=== PATIENT | male | born 1990 | race American Indian/Alaskan Native ===

== ENCOUNTER 2018-02-14 05:28 | Emergency (ER) | payer SELFPAY ==
[2018-02-14 05:40] VITALS: BP 124/80
--- NOTE | 2018-02-14 06:48 | XRay Report ---
FINAL REPORT PROCEDURE: XR TOE(S) 2+V RT TECHNIQUE: RIGHT foot radiographs, AP, lateral, and oblique views. CPT 78893 HISTORY: trauma great toe COMPARISON: No prior studies are available for comparison. FINDINGS: Fracture (s) and/or Dislocation(s): There is a nondisplaced hairline fracture of the distal portion of the 1st distal phalanx. There is a questionable cortical fracture of the distal 2nd phalanx.. Alignment: Normal . Joint space(s): There is no joint dislocation.. Soft tissues: There is soft tissue swelling of the 1st and 2nd digits. Bone mineralization: Normal . Foreign bodies: None . Calcaneal spurring: None . IMPRESSION: There is a nondisplaced hairline fracture of the distal portion of the 1st distal phalanx. There is a questionable cortical fracture of the distal 2nd phalanx.. There is no joint dislocation.. There is soft tissue swelling of the 1st and 2nd digits. .
--- NOTE | 2018-02-14 07:03 | Emergency Department Report ---
ED Lower Extremity HPI - General Chief Complaint: Extremity Injury, Lower Stated Complaint: RT FOOT INJURY Time Seen by Provider: 02/14/18 07:01 Source: patient, family Mode of arrival: Ambulatory Limitations: No Limitations - History of Present Illness Initial Comments: This is a 27-year-old male patient here reports that he has right toe pain that is 10 out of 10 status post drop and 25 pound dumbbell on to at 4 AM this morning. Pain is achy and throbbing. He said he is also having bleeding from right great toenail. Pain is worse with movement and touch resting. Pain is constant. Denies any numbness or tingling. Denies any radiation of pain to his right foot. No medication taken prior to coming to the emergency room. MD Complaint: foot injury (right great toe injury with pain) -: This morning Injury: Toes: Right (pain and swelling to right great toe) Type of Injury: blunt Severity: severe Severity scale (0 -10): 10 Improves With: rest Worsens With: weight bearing, movement, palpation Context: direct blow Associated Symptoms: swelling, able to partially bear weight. denies: numbness , tingling, unable to bear weight Treatments Prior to Arrival: other (none) - Related Data Previous Rx's Medication Instructions Recorded Last Taken Type Acetaminophen/Codeine [Tylenol 1 tab PO Q6H PRN #12 tab 02/14/18 Unknown Rx /Codeine # 3 tab] Ibuprofen [Motrin] 600 mg PO Q8H PRN #15 tablet 02/14/18 Unknown Rx Allergies Allergy/AdvReac Type Severity Reaction Status Date / Time No Known Allergies Allergy Verified 02/14/18 05:36 ED Review of Systems ROS: Stated complaint: RT FOOT INJURY Other details as noted in HPI Constitutional: denies: chills, fever ENT: as per HPI Respiratory: denies: cough, shortness of breath, SOB with exertion, SOB at rest , stridor, wheezing Cardiovascular: denies: chest pain, palpitations, edema, syncope Gastrointestinal: denies: abdominal pain, nausea, vomiting Musculoskeletal: joint swelling, arthralgia. denies: back pain, myalgia Skin: change in hair/nails (some bleeding noted from right great toe and nail bed). denies: rash, lesions Neurological: denies: headache, weakness, numbness, paresthesias ED Past Medical Hx - Past Medical History Previous Medical History?: No - Surgical History Past Surgical History?: No - Family History Family history: no significant - Social History Smoking Status: Never Smoker Substance Use Type: None - Medications Home Medications: Home Medications Medication Instructions Recorded Confirmed Last Taken Type Acetaminophen/Codeine [Tylenol 1 tab PO Q6H PRN #12 tab 02/14/18 Unknown Rx /Codeine # 3 tab] Ibuprofen [Motrin] 600 mg PO Q8H PRN #15 tablet 02/14/18 Unknown Rx ED Physical Exam - General Limitations: No Limitations General appearance: alert, in no apparent distress - Head Head exam: Present: atraumatic, normocephalic, normal inspection - Eye Eye exam: Present: normal appearance, PERRL, EOMI Pupils: Present: normal accommodation - ENT ENT exam: Present: normal exam, normal orophraynx, mucous membranes moist - Neck Neck exam: Present: normal inspection, full ROM, other (no C-spine tenderness). Absent: tenderness, lymphadenopathy - Respiratory Respiratory exam: Present: normal lung sounds bilaterally. Absent: respiratory distress, chest wall tenderness - Cardiovascular Cardiovascular Exam: Present: regular rate, normal rhythm, normal heart sounds. Absent: systolic murmur, diastolic murmur - GI/Abdominal GI/Abdominal exam: Present: soft, normal bowel sounds. Absent: distended, tenderness, organomegaly, mass, bruit, pulsatile mass - Rectal Rectal exam: Present: deferred - Extremities Exam Extremities exam: Present: normal inspection, full ROM (Limited range of motion to right great toe), tenderness (tender to palpate the right great toe), normal capillary refill, joint swelling (right great toe distally), other (no clubbing , cyanosis or edema. +2 pulses to all extremities and no neurovascular compromise). Absent: pedal edema, calf tenderness - Expanded Lower Extremity Exam Right Hip exam: Present: normal inspection, full ROM, pelvic stability. Absent: tenderness, swelling, abrasion, laceration, ecchymosis, deformity, crepidus, dislocation, erythema, external rotation, internal rotation, shortening Upper Leg exam: Present: normal inspection, full ROM. Absent: tenderness, swelling, abrasion, laceration, ecchymosis, deformity, crepidus, dislocation, erythema Knee exam: Present: normal inspection, full ROM, full knee extension. Absent: tenderness, swelling, abrasion, laceration, ecchymosis, deformity, crepidus, dislocation, erythema, effusion, pain w/ pronation/supination, posterior draw sign, pain/laxity with valgus, pain/laxity with varus Lower Leg exam: Present: normal inspection, full ROM. Absent: tenderness, swelling, abrasion, laceration, ecchymosis, deformity, crepidus, dislocation, erythema, palpable cord, Robbin's sign Ankle exam: Present: normal inspection, full ROM. Absent: tenderness, swelling , abrasion, laceration, ecchymosis, deformity, crepidus, dislocation, erythema Foot/Toe exam: Present: tenderness (tenderness to palpate the right great toe. Right second toe nontender to palpate without swelling. Full range of motion), swelling (right great toe). Absent: full ROM (amended range of motion to right great toe), abrasion, laceration, ecchymosis, deformity, crepidus, dislocation, erythema, amputation, puncture wound, foreign body, calcaneal tenderness, tenderness at base of 5th metatarsal, nail avulsion (toenail to right great toe is intact but patient with scant amount of blood from nail bed.), subungual hematoma Neuro vascular tendon exam: Present: no vascular compromise, significant pain with passive ROM of distal joint. Absent: pulse deficit, abnormal cap refill, motor deficit, tendon deficit, extremity cold to touch, pallor, abnormal 2- point discrimination, decreased fine/light touch, foot drop, peroneal nerve deficit Gait: Positive: antalgic - Back Exam Back exam: Present: normal inspection, full ROM. Absent: tenderness, paraspinal tenderness, vertebral tenderness - Neurological Exam Neurological exam: Present: alert, oriented X3, normal gait - Psychiatric Psychiatric exam: Present: normal affect, normal mood - Skin Skin exam: Present: warm, dry, intact, normal color, other (scant bleeding from right great toenail bed with intact toenail.). Absent: rash ED Course Vital Signs 02/14/18 02/14/18 02/14/18 05:36 06:13 07:13 Temperature 98.8 F Pulse Rate 117 H 74 Respiratory 16 18 18 Rate Blood Pressure 124/80 O2 Sat by Pulse 95 97 Oximetry 02/14/18 07:40 Temperature Pulse Rate Respiratory 18 Rate Blood Pressure O2 Sat by Pulse Oximetry - Reevaluation(s) Reevaluation #1: 02/14/18 08:11 Patient received oxycodone 5/325 mg 2 tablets by mouth and Motrin 800 mg by mouth for right great toe pain without relief. Prior to splinted in right foot soaked in iodine, irrigated with normal saline and simple dressing in place to site. Tetanus vaccine is up-to-date. See procedure note for detail on. There was questionable fracture of the distal second right toe but physical exam without any tenderness or swelling. 02/14/18 08:18 - Orthopedic Splinting/Casting Injury #1 Side: right Lower Extremity Injury Location: toe Lower Extremity Immobilizer: post-op shoe, jessica tape Other Orthopedic Equipment: crutches Additional Comments: Patient with 2+ and bounding pulse status post jessica tape to right great toe and second toe and postop shoe. He has good color, sensation temperature and movement to right foot and toes. ED Lower Extremity MDM - Radiology Data Radiology results: report reviewed X-ray of right toes dictated by radiologist and report reviewed by myself. Please see below for details Patient: HERNANDEZ ZUNIGA JR MR#: [id number] : 1990 Acct:[id number] Age/Sex: 27 / M ADM Date: 02/14/18 Loc: ED Attending Dr: Ordering Physician: ANGELO EDMOND MD Date of Service: 02/14/18 Procedure(s): XR toe(s) 2+V RT Accession Number(s): [id number] cc: ANGELO EDMOND MD Fluoro Time In Minutes: FINAL REPORT PROCEDURE: XR TOE(S) 2+V RT TECHNIQUE: RIGHT foot radiographs, AP, lateral, and oblique views. CPT 72397 HISTORY: trauma great toe COMPARISON: No prior studies are available for comparison. FINDINGS: Fracture (s) and/or Dislocation(s): There is a nondisplaced hairline fracture of the distal portion of the 1st distal phalanx. There is a questionable cortical fracture of the distal 2nd phalanx.. Alignment: Normal . Joint space(s): There is no joint dislocation.. Soft tissues: There is soft tissue swelling of the 1st and 2nd digits. Bone mineralization: Normal . Foreign bodies: None . Calcaneal spurring: None . IMPRESSION: There is a nondisplaced hairline fracture of the distal portion of the 1st distal phalanx. There is a questionable cortical fracture of the distal 2nd phalanx.. There is no joint dislocation.. There is soft tissue swelling of the 1st and 2nd digits. . Transcribed By: CO Dictated By: DEISY FALK MD Electronically Authenticated By: DEISY FALK MD Signed Date/Time: 02/14/18643 DD/ 3 TD/TT: 02/14/18643 - Medical Decision Making ED course: This is a 27-year-old male here reports that he dropped a 25 pound dumbbell on his right great toe this morning and is having pain and swelling with some bleeding from under his great toe. He is reporting pain that is worse with movement and here for evaluation. I saw and examined patient . Patient had x-ray of right toes that was dictated by radiologist and report reviewed by myself and x-ray showed patient with fracture to distal phalanx of right great toe that is nondisplaced. Questionable fracture of the right second toe distally but exam without any tenderness or swelling and patient has full range of motion. Patient with right great toe fracture, swelling and tenderness. But after splinting and pain medication. Diagnosis and x-ray results explained to patient and he voiced understanding. A/P 1: Right great toe nondisplaced fracture: Patient had some bleeding from his right great toenail bed and right foot soaked in iodine and irrigated with normal saline small dressing placed . Please see procedure note for detail and splinting. Referral to orthopedic Dr. Toth 2:Arthralgia right great toe: Percocet 5/325 mg po x2, motrin 800 mg po x1 which received pain. will send home on medication Referral to orthopedic Dr. Toth and primary care physician. Education given medication, diagnosis rice therapy, NWB. Patient pain is controlled and he said he feels better. Patient discharged home in stable condition to follow up with orthopedic doctor in 3 days. He was given prescription for Tylenol 3 and Motrin when necessary. He Voiced understanding of discharge instructions - Differential Diagnosis toe fracture, toe contusion, musculoskeletal pain Critical care attestation.: If time is entered above; I have spent that time in minutes in the direct care of this critically ill patient, excluding procedure time. ED Disposition Clinical Impression: Arthralgia of toe of right foot Fracture of great toe, right, closed Qualifiers: Encounter type: initial encounter Phalanx: distal Fracture alignment: nondisplaced Qualified Code(s): S92.424A - Nondisplaced fracture of distal phalanx of right great toe, initial encounter for closed fracture Disposition: TO HOME OR SELFCARE Is pt being admited?: No Does the pt Need Aspirin: No Condition: Stable Instructions: Toe Fracture (ED), Arthralgia (ED), RICE Therapy (ED) Additional Instructions: Please follow up with orthopedic doctor regarding right great toe fracture see discharge instruction in Rice therapy Take Tylenol 3 for severe pain Take Motrin for mild to moderate pain Prescriptions: Acetaminophen/Codeine [Tylenol /Codeine # 3 tab] 1 tab PO Q6H PRN #12 tab PRN Reason: severe pain Ibuprofen [Motrin] 600 mg PO Q8H PRN #15 tablet PRN Reason: Pain Referrals: [facility] [Outside] - 3-5 Days GARRETT OTTH MD [Staff Physician] - 02/17/18 Forms: Work/School Release Form(ED)
[2018-02-14] MEDS ORDERED: MOTRIN PO ONE (07:08)
[2018-02-14] MEDS ORDERED: PERCOCET 5/325 PO ONE (07:38)
== END 2018-02-14 09:02 | disposition home or self-care (01) ==
LOC: ED 05:28
DX: S92.421A Displaced fracture of distal phalanx of right great toe, initial encounter for closed fracture (principal); W20.8XXA Other cause of strike by thrown, projected or falling object, initial encounter; Y93.89 Activity, other specified; Y92.89 Other specified places as the place of occurrence of the external cause; Y99.8 Other external cause status
CPT/HCPCS: 99284